=== PATIENT | male | born 1960 | race African-American/Black ===

== ENCOUNTER 2017-01-20 20:26 | Emergency (ER) | payer SELFPAY | END 2017-01-20 22:11 | disposition home or self-care (01) | LOC: D.ER 20:26 | DX: S63.502A Unspecified sprain of left wrist, initial encounter (principal); X58.XXXA Exposure to other specified factors, initial encounter; Y93.89 Activity, other specified; Y92.89 Other specified places as the place of occurrence of the external cause ==

== ENCOUNTER 2017-05-17 05:44 | Emergency (ER) | payer SELFPAY | END 2017-05-17 07:00 | disposition home or self-care (01) | LOC: D.ER 05:44 | DX: S89.92XA Unspecified injury of left lower leg, initial encounter (principal); W17.89XA Other fall from one level to another, initial encounter; Y93.89 Activity, other specified; Y92.89 Other specified places as the place of occurrence of the external cause ==

== ENCOUNTER 2017-06-04 08:34 | Emergency (ER) | payer SELFPAY ==
[2017-06-04 11:04] LABS: BASOPHILS 0.4 % (0-2); EOSINOPHILS 19.4 % (0-7); HEMATOCRIT 43.9 % (42.0-54.0); HEMOGLOBIN 14.4 g/dL (13.5-17.5); IMMATURE GRANULOCYTES 0.1 % (0-5); LYMPHOCYTES 28.4 % (15-50); MCH 28.2 pg (26.0-34.0); MCHC 32.8 g/dL (31.0-37.0); MCV 86.1 fL (80.0-100.0); MEAN PLATELET VOLUME 10.8 fL (7.4-10.4); MONOCYTES 7.4 % (2-11); NEUTROPHILS 44.3 % (40-80); PLATELET COUNT 192 10x3/uL (130-400); WBC 6.8 10x3/uL (4.8-10.8)
[2017-06-04 11:13] LABS: INR 0.93 (0.85-1.17); PROTIME 12.3 SECONDS (11.6-15.0)
[2017-06-04 11:29] LABS: ALBUMIN 3.3 g/dL (3.4-5.0); BILIRUBIN - TOTAL 0.44 mg/dL (0.2-1.3); CARBON DIOXIDE 26.4 mmol/L (21.0-32.0); CREATININE - SERUM 1.2 mg/dL (0.6-1.3); POTASSIUM - SERUM 4.4 mmol/L (3.5-5.1); PROTEIN - SERUM 7.9 g/dL (6.4-8.2)
== END 2017-06-04 11:58 | disposition home or self-care (01) ==
LOC: D.ER 08:34
PROVIDERS: Nurse Practitioner Family
DX: S00.03XA Contusion of scalp, initial encounter (principal); S10.93XA Contusion of unspecified part of neck, initial encounter; S20.229A Contusion of unspecified back wall of thorax, initial encounter; W20.8XXA Other cause of strike by thrown, projected or falling object, initial encounter; Y93.89 Activity, other specified; Y92.89 Other specified places as the place of occurrence of the external cause; S16.1XXA Strain of muscle, fascia and tendon at neck level, initial encounter; M62.830 Muscle spasm of back; M62.838 Other muscle spasm

== ENCOUNTER 2017-09-18 09:21 | Emergency (ER) | payer SELFPAY ==
[2017-09-18 10:03] LABS: BASOPHILS 0.4 % (0-2); EOSINOPHILS 20.4 % (0-7); HEMATOCRIT 45.5 % (42.0-54.0); HEMOGLOBIN 14.9 g/dL (13.5-17.5); IMMATURE GRANULOCYTES 0.1 % (0-5); LYMPHOCYTES 28.4 % (15-50); MCH 28.5 pg (26.0-34.0); MCHC 32.7 g/dL (31.0-37.0); MCV 87.2 fL (80.0-100.0); MEAN PLATELET VOLUME 11.5 fL (7.4-10.4); MONOCYTES 6.6 % (2-11); NEUTROPHILS 44.1 % (40-80); PLATELET COUNT 193 10x3/uL (130-400); RBC 5.22 10x6/uL (4.20-6.10); RDW 13.5 % (11.5-14.5); WBC 7.3 10x3/uL (4.8-10.8)
[2017-09-18 10:13] LABS: ALBUMIN 3.6 g/dL (3.4-5.0); ANION GAP 11.1 mmol/L (8-16); BILIRUBIN - TOTAL 0.16 mg/dL (0.2-1.3); CALCIUM 9.4 mg/dL (8.5-10.1); CARBON DIOXIDE 30.5 mmol/L (21.0-32.0); CREATININE - SERUM 1.1 mg/dL (0.6-1.3); POTASSIUM - SERUM 4.6 mmol/L (3.5-5.1); PROTEIN - SERUM 7.9 g/dL (6.4-8.2)
[2017-09-18 10:35] LABS: APPEARANCE CLEAR (CLEAR); BILIRUBIN NEGATIVE (NEGATIVE); COLOR YELLOW (YELLOW); GLUCOSE NEGATIVE (NEGATIVE); KETONE NEGATIVE (NEGATIVE); NITRITE NEGATIVE (NEGATIVE); PROTEIN NEGATIVE (NEGATIVE); UROBILINOGEN NORMAL (NORMAL)
== END 2017-09-18 12:54 | disposition home or self-care (01) ==
LOC: D.ER 09:21
PROVIDERS: Emergency Medicine
DX: R19.7 Diarrhea, unspecified (principal); R11.10 Vomiting, unspecified; A08.4 Viral intestinal infection, unspecified

== ENCOUNTER 2017-10-15 07:05 | Emergency (ER) | payer SELFPAY | END 2017-10-15 07:42 | disposition home or self-care (01) | LOC: D.ER 07:05 | DX: S29.012A Strain of muscle and tendon of back wall of thorax, initial encounter (principal); X58.XXXA Exposure to other specified factors, initial encounter; Y93.89 Activity, other specified; Y92.029 Unspecified place in mobile home as the place of occurrence of the external cause; F17.200 Nicotine dependence, unspecified, uncomplicated ==

== ENCOUNTER 2018-04-28 06:22 | Emergency (ER) | payer SELFPAY ==
[2018-04-28 07:31] LABS: BASOPHILS 0.6 % (0-2); EOSINOPHILS 15.9 % (0-7); HEMATOCRIT 39.9 % (42.0-54.0); HEMOGLOBIN 13.3 g/dL (13.5-17.5); IMMATURE GRANULOCYTES 0.2 % (0-5); LYMPHOCYTES 29.3 % (15-50); MCH 28.5 pg (26.0-34.0); MCHC 33.3 g/dL (31.0-37.0); MCV 85.6 fL (80.0-100.0); MEAN PLATELET VOLUME 10.6 fL (7.4-10.4); MONOCYTES 10.6 % (2-11); NEUTROPHILS 43.4 % (40-80); PLATELET COUNT 194 10x3/uL (130-400); RBC 4.66 10x6/uL (4.20-6.10); WBC 5.4 10x3/uL (4.8-10.8)
[2018-04-28 07:44] LABS: C-REACTIVE PROTEIN 1.4 mg/dL (0.0-0.9); CALCIUM 9.1 mg/dL (8.5-10.1); CARBON DIOXIDE 22.1 mmol/L (21.0-32.0); CREATININE - SERUM 1.1 mg/dL (0.6-1.3); POTASSIUM - SERUM 4.1 mmol/L (3.5-5.1); URIC ACID 8.6 mg/dL (2.6-7.2)
== END 2018-04-28 10:27 | disposition home or self-care (01) ==
LOC: D.ER 06:22
PROVIDERS: Emergency Medicine
DX: M10.041 Idiopathic gout, right hand (principal)

== ENCOUNTER 2019-04-23 15:30 | Emergency (ER) | payer SELFPAY ==
[~2019-04-23] VITALS: Ht 180.3 cm; Wt 95.9 kg
[2019-04-23 15:35] VITALS: Ht 180.3 cm; Wt 95.9 kg
[2019-04-23] MEDS ORDERED: INDOCIN25 MG PO (16:20)
[2019-04-23 17:00] VITALS: BP 124/73
== END 2019-04-23 17:01 | disposition home or self-care (01) ==
LOC: D.ER 15:30
DX: M10.041 Idiopathic gout, right hand (principal); M79.641 Pain in right hand

== ENCOUNTER 2019-11-14 15:07 | Emergency (ER) | payer SELFPAY ==
[~2019-11-14] VITALS: Ht 180.3 cm; Wt 95.9 kg
[~2019-11-14 15:07] MED LIST: INDOCIN25 MG PO
[2019-11-14 15:13] VITALS: Ht 180.3 cm; Wt 95.9 kg
[2019-11-14] MEDS ORDERED: INDOCIN25 MG PO (15:49)
[2019-11-14 16:16] VITALS: BP 149/88
== END 2019-11-14 16:17 | disposition home or self-care (01) ==
LOC: D.ER 15:07
DX: M25.532 Pain in left wrist (principal); M10.9 Gout, unspecified